=== PATIENT | female | born 1985 | race Caucasian/White ===

== ENCOUNTER 2017-02-08 11:16 | Emergency (ER) | payer OTHER ==
[2017-02-08 11:47] VITALS: RESP 20
--- NOTE | 2017-02-08 13:36 | ED ---
General Adult HPI - General Chief complaint: Upper Respiratory Infection Stated complaint: Cough/ 30 weeks Time Seen by Provider: 02/08/17 13:16 Source: patient, RN notes reviewed Mode of arrival: ambulatory Limitations: no limitations - History of Present Illness Initial comments: Patient 31-year-old female who presents emergency room today with chief complaint cough congestion over week. Does admit to sputum production that it' s green in color. States that she is approximately 30 weeks as well. She denies any body aches or fevers. She has mid to rhinorrhea and a mild sore throat. Patient denies any recent shortness of breath, chest pain, back pain, abdominal pain, nausea or vomiting, numbness or tingling, dysuria or hematuria, constipation or diarrhea, headaches or visual changes, or any other complaints. - Related Data Home Medications Medication Instructions Recorded Confirmed Pnv,Calcium 72/Iron/Folic Acid 1 04/26/15 04/26/15 [ Plus Tablet] Previous Rx's Medication Instructions Recorded Acetaminophen-Codeine 300-30mg 2 each PO Q4HR PRN #30 tab 04/27/15 [Tylenol w/codeine #3] Ibuprofen [Motrin] 600 mg PO Q6HR PRN #30 tab 04/27/15 Azithromycin [Zithromax Z-pack] 0 mg PO DIRECTED #6 tab 02/08/17 Allergies Allergy/AdvReac Type Severity Reaction Status Date / Time latex Allergy Rash/Hives Verified 02/08/17 11:47 Review of Systems ROS Statement: Those systems with pertinent positive or pertinent negative responses have been documented in the HPI. ROS Other: All systems not noted in ROS Statement are negative. Past Medical History Past Medical History: No Reported History Additional Past Medical History / Comment(s): OB history: She has had 4 previous vaginal deliveries. This is her fifth . She has had care with me since 8 weeks. O+, abs neg, Rub Imm, RPR NR, Hep B neg. Declined quad. passed 1hr GTT. GBS neg. History of Any Multi-Drug Resistant Organisms: None Reported Past Surgical History: No Surgical Hx Reported Past Anesthesia/Blood Transfusion Reactions: No Reported Reaction Past Psychological History: No Psychological Hx Reported Smoking Status: Former smoker Past Alcohol Use History: None Reported Past Drug Use History: None Reported - Past Family History Mother History Unknown: Yes Additional Family Medical History / Comment(s): Grandmother colon cancer General Exam - General Exam Comments Initial Comments: General: The patient is awake and alert, in no distress, and does not appear acutely ill. Eye: Pupils are equal, round and reactive to light, extra-ocular movements are intact. No nystagmus. There is normal conjunctiva bilaterally. No signs of icterus. Ears, nose, mouth and throat: There are moist mucous membranes and no oral lesions. Neck: The neck is supple, there is no tenderness or JVD. Cardiovascular: There is a regular rate and rhythm. No murmur, rub or gallop is appreciated. Respiratory: Lungs are clear to auscultation, respirations are non-labored, breath sounds are equal. No wheezes, stridor, rales, or rhonchi. Musculoskeletal: Normal ROM, no tenderness. Strength 5/5. Sensation intact. Pulses equal bilaterally 2+. Neurological: A&O x 3. CN II-XII intact, There are no obvious motor or sensory deficits. Coordination appears grossly intact. Speech is normal. Skin: Skin is warm and dry and no rashes or lesions are noted. Psychiatric: Cooperative, appropriate mood & affect, normal judgment. Limitations: no limitations Course Vital Signs 02/08/17 02/08/17 11:42 12:58 Temperature 97.6 F Pulse Rate 101 H Respiratory 20 20 Rate Blood Pressure 117/62 O2 Sat by Pulse 98 Oximetry Medical Decision Making - Medical Decision Making Options were discussed with patient about x-ray. She is 30 weeks . She states she would like to avoid x-ray if possible. Patient does admit to cough congestion with positive sputum production it's been green in color. Patient's vitals are stable. Patient will be treated for bronchitis placed on azithromycin advised follow-up with her family doctor or SITE DIRECTOR over the next 2 days. Advised return to emergency room if any symptoms increase or worsen or for any other concerns. Disposition Clinical Impression: Acute bronchitis Disposition: HOME SELF-CARE Condition: Good Instructions: Acute Bronchitis (ED) Additional Instructions: Please use medication as discussed. Please follow-up with family doctor in the next 2 days of symptoms have not improved. Please return to emergency room if the symptoms increase or worsen or for any other concerns. Prescriptions: Azithromycin [Zithromax Z-pack] 0 mg PO DIRECTED #6 tab Referrals: Cande Moore MD [Primary Care Provider] - 1-2 days Time of Disposition: 13:34
[2017-02-08 13:50] VITALS: BP 121/61; PULSE 86; TEMP 98.2
== END 2017-02-08 13:50 | disposition home or self-care (01) ==
LOC: EC 11:16
DX: O99.513 Diseases of the respiratory system complicating pregnancy, third trimester (principal); J20.9 Acute bronchitis, unspecified; O99.89 Other specified diseases and conditions complicating pregnancy, childbirth and the puerperium; J34.89 Other specified disorders of nose and nasal sinuses; J02.9 Acute pharyngitis, unspecified; Z87.891 Personal history of nicotine dependence; Z79.899 Other long term (current) drug therapy; Z91.040 Latex allergy status; Z3A.30 30 weeks gestation of pregnancy
CPT/HCPCS: 99283

== ENCOUNTER 2017-04-08 06:00 | Inpatient (IN) | payer OTHER ==
[2017-04-08 06:40] VITALS: BMI 41.9
[2017-04-08] MEDS ORDERED: OXYTOCIN 10 UNIT/ML 1 ML VIAL IM PRN (06:41)
[2017-04-08] MEDS ORDERED: TERBUTALINE 1 MG/ML VIAL SQ PRN (06:41)
[2017-04-08] MEDS ORDERED: METHYLERGONOVINE 0.2 MG/ML 1 ML AMP IM PRN (06:41)
[2017-04-08] MEDS ORDERED: CARBOPROST TROMETHAMINE 250 MCG/ML 1 ML AMP IM PRN (06:41)
[2017-04-08] MEDS ORDERED: LIDOCAINE 1% (PF) 10 MG/ML (30 ML SDV) SQ PRN (06:41)
[2017-04-08] MEDS ORDERED: OXYTOCIN 20 UNITS/1000 ML NS 1,000 ML IV SCH (06:45)
[2017-04-08 06:53] LABS: Basophils % (A) 0 %; Eosinophils # (A) 0.1 k/uL (0-0.7); Eosinophils % (A) 1 %; HCT 36.4 % (34.0-46.0); HGB 12.4 gm/dL (11.4-16.0); Lymphocytes # (A) 2.7 k/uL (1.0-4.8); Lymphocytes % (A) 24 %; MCH 29.9 pg (25.0-35.0); MCHC 34.2 g/dL (31.0-37.0); MCV 87.5 fL (80.0-100.0); Mean Platelet Volume 7.4; Monocytes # (A) 0.5 k/uL (0-1.0); Monocytes % (A) 4 %; Neutrophils # (A) 8.2 k/uL (1.3-7.7); Neutrophils % (A) 70 %; Platelet Count 247 k/uL (150-450); RBC 4.16 m/uL (3.80-5.40); RDW 14.2 % (11.5-15.5); WBC 11.6 k/uL (3.8-10.6)
[2017-04-08] MEDS: LACTATED RINGERS 1,000 ML IV SCH ×4 (06:53→20:27)
--- NOTE | 2017-04-08 17:37 | P.HPOB ---
History of Present Illness H&P Date: 04/08/17 Chief Complaint: Induction of labor 31-year-old presents at 39 weeks for induction of labor. Her cervix is 1- 2 cm dilated, 70% effaced, -2 station. She is mague irregularly. heart tones 140-145 with moderate variability and reactive. Review of Systems All systems: negative Constitutional: Denies chills, Denies fever Eyes: denies blurred vision, denies pain Ears, nose, mouth and throat: Denies headache, Denies sore throat Cardiovascular: Denies chest pain, Denies shortness of breath Respiratory: Denies cough Gastrointestinal: Denies abdominal pain, Denies diarrhea, Denies nausea, Denies vomiting Genitourinary: Denies dysuria, Denies hematuria Musculoskeletal: Denies myalgias Integumentary: Denies pruritus, Denies rash Neurological: Denies numbness, Denies weakness Psychiatric: Denies anxiety, Denies depression Endocrine: Denies fatigue, Denies weight change Past Medical History Past Medical History: No Reported History Additional Past Medical History / Comment(s): OB history: She has had 5 previous vaginal deliveries. This is her sixth . She has had care with dc since 11 weeks. O+, abs neg, Rub Imm, RPR NR, Hep B neg. Declined quad. Did not do 1 hour GTT. GBS neg. History of Any Multi-Drug Resistant Organisms: None Reported Past Surgical History: No Surgical Hx Reported Past Anesthesia/Blood Transfusion Reactions: No Reported Reaction Past Psychological History: No Psychological Hx Reported Smoking Status: Former smoker Past Alcohol Use History: None Reported Past Drug Use History: None Reported - Past Family History Mother History Unknown: Yes Additional Family Medical History / Comment(s): Grandmother colon cancer Medications and Allergies Home Medications Medication Instructions Recorded Confirmed Type Pnv,Calcium 72/Iron/Folic Acid 1 tab PO DAILY 04/26/15 04/08/17 History [ Plus Tablet] Allergies Allergy/AdvReac Type Severity Reaction Status Date / Time latex Allergy Rash/Hives Verified 04/08/17 06:32 Exam Osteopathic Statement: *. No significant issues noted on an osteopathic structural exam other than those noted in the History and Physical/Consult. - Vital Signs Vital signs: Vital Signs Temp Pulse Resp BP Pulse Ox 04/08/17 06:35 98.1 F 94 18 120/59 97 Intake and Output 02/28/18 02/28/18 02/28/18 06:59 14:59 22:59 Other: Weight 128.82 kg Heart: Regular rate and rhythm Lungs: Clear to auscultation bilaterally Abdomen: Soft, nontender Extremities: Negative Homans sign Results Result Diagrams: 04/08/17 06:35 Abnormal Lab Results - Last 24 Hours (Table) 04/08/17 Range/Units 06:35 WBC 11.6 H (3.8-10.6) k/uL Neutrophils # 8.2 H (1.3-7.7) k/uL Assessment and Plan (1) Normal labor Current Visit: Yes Status: Acute Code(s): O80 - ENCOUNTER FOR FULL-TERM UNCOMPLICATED DELIVERY; Z37.9 - OUTCOME OF DELIVERY, UNSPECIFIED SNOMED Code(s ): 85445397 Plan: 1. Induction of labor with amniotomy and Pitocin 2. Anticipate normal vaginal delivery
[2017-04-08] MEDS ORDERED: SODIUM CHLORIDE 0.9% 100 ML BAG ONE (19:43)
[2017-04-08] MEDS ORDERED: fentaNYL (PF) 50 MCG/ML 5 ML AMP ONE (19:43)
[2017-04-08] MEDS ORDERED: BUPIVACAINE (PF) 0.25% 30 ML VIAL ONE (19:43)
[2017-04-09] MEDS ORDERED: SIMETHICONE 80 MG CHEWABLE PO PRN (01:20)
[2017-04-09] MEDS ORDERED: WITCH HAZEL 1 EACH MED..PAD TOPICAL PRN (01:20)
[2017-04-09] MEDS ORDERED: ZOLPIDEM 5 MG TAB PO PRN (01:20)
[2017-04-09] MEDS ORDERED: HYDROCORTISONE 2.5% RECTAL CREAM 30 GM TUBE RECTAL PRN (01:20)
[2017-04-09] MEDS ORDERED: diphenhydrAMINE 25 MG CAP PO PRN (01:20)
[2017-04-09] MEDS ORDERED: diphenhydrAMINE 50 MG CAP PO PRN (01:20)
[2017-04-09] MEDS ORDERED: ACETAMINOPHEN TAB 325 MG TAB PO PRN (01:20)
[2017-04-09] MEDS ORDERED: LANOLIN CREAM 5 GM TUBE TOPICAL PRN (01:20)
[2017-04-09] MEDS ORDERED: diphenhydrAMINE 50 MG/ML 1 ML VIAL IVP PRN ×2 (01:20)
[2017-04-09] MEDS ORDERED: BENZOCAINE/MENTHOL SPRAY 1 GM/SPRAY AEROSOL TOPICAL PRN (01:20)
[2017-04-09] MEDS ORDERED: HYDROcodone/APAP 5-325MG 1 EACH TAB PO PRN ×2 (01:21)
--- NOTE | 2017-04-09 01:24 | P.PROBDLV ---
Vaginal Delivery Note - . Vaginal Delivery Note: 31-year-old presented at 39 weeks for induction of labor. Her cervix is 1 -2 cm dilated, 70% effaced, -2 station. She was mague irregularly. heart tones 140-145 with moderate variability and reactive. Pitocin was started and amniotomy was performed at 7:45 AM, thin meconium fluid noted. She progressed very slowly throughout the day and she was 5 cm dilated she did get an epidural late in the afternoon. Her cervix was completely dilated at 1 AM. She then pushed, and delivered a viable female over intact perineum under epidural anesthesia at 1:03 AM. Head delivered OA, nuchal cord 1 easily reduced, anterior shoulder which was the left shoulder delivered gentle downward traction followed by posterior shoulder and rest of body. Nose and mouth bulb suctioned, cord clamped and cut, infant placed on mother's abdomen. Apgars 8, 9, weight 6 lbs. 5 oz. Placenta delivered spontaneously, intact with three-vessel cord at 1:05 AM. Vagina, cervix, perineum inspected. No lacerations noted. Estimated blood loss 200 mL. Mother and baby in stable condition.
[2017-04-09] MEDS ORDERED: OXYTOCIN 20 UNITS/1000 ML NS 1,000 ML IV SCH (01:30)
[2017-04-09] MEDS: IBUPROFEN 600 MG TAB PO PRN ×2 (04:33→16:54)
[2017-04-09] MEDS ORDERED: BUPIVACAINE (PF) 0.25% 25 ML, fentaNYL (PF) 200 MCG in SODIUM CHLORIDE 0.9% 71 ML EPIDURAL ONE (06:29)
[2017-04-09] MEDS: SENNOSIDES-DOCUSATE SODIUM 1 EACH TAB PO SCH ×2 (08:26→19:50)
[2017-04-10 01:51] VITALS: RESP 16; TEMP 97.7
--- NOTE | 2017-04-10 07:46 | P.DS ---
Providers Date of admission: 04/08/17 06:20 Expected date of discharge: 04/10/17 Attending physician: Vanesa Gasca Primary care physician: Cande Moore - Discharge Diagnosis(es) (1) Normal labor Current Visit: Yes Status: Resolved (2) Normal vaginal delivery Current Visit: No Status: Acute Hospital Course: Patient patient presented for induction of labor. She underwent normal vaginal delivery. Her course was uncomplicated. She'll be discharged home day #1 in stable condition to follow-up with me in 6 weeks. Plan - Discharge Summary New Discharge Prescriptions: New Ibuprofen [Motrin] 600 mg PO Q6HR PRN #30 tab PRN Reason: Mild Pain Or Fever >= 100.5 No Action Pnv,Calcium 72/Iron/Folic Acid [ Plus Tablet] 1 tab PO DAILY Discharge Medication List Pnv,Calcium 72/Iron/Folic Acid [ Plus Tablet] 1 tab PO DAILY 04/26/15 [ History] Ibuprofen [Motrin] 600 mg PO Q6HR PRN #30 tab 04/10/17 [Rx] Follow up Appointment(s)/Referral(s): Vanesa Gasca DO [Doctor of Osteopathic Medicine] - 6 Weeks
[2017-04-10] MEDS: SENNOSIDES-DOCUSATE SODIUM 1 EACH TAB PO SCH (08:55)
[2017-04-10 08:56] VITALS: BP 128/77; PULSE 82
== END 2017-04-10 12:25 | disposition home or self-care (01) | DRG 775 ==
LOC: 4FBP 06:20
PROVIDERS: ADMIT Obstetrics & Gynecology; ATTEND Obstetrics & Gynecology
PROC: 3E0R3NZ Introduction of Analgesics, Hypnotics, Sedatives into Spinal Canal, Percutaneous Approach (ICD-10-PCS; principal; 2017-04-08)
PROC: 10E0XZZ Delivery of Products of Conception, External Approach (ICD-10-PCS; principal; 2017-04-08)
PROC: 3E033VJ Introduction of Other Hormone into Peripheral Vein, Percutaneous Approach (ICD-10-PCS; principal; 2017-04-08)
PROC: 10907ZC Drainage of Amniotic Fluid, Therapeutic from Products of Conception, Via Natural or Artificial Opening (ICD-10-PCS; principal; 2017-04-08)
DX: O69.81X0 Labor and delivery complicated by cord around neck, without compression, not applicable or unspecified (principal); O77.0 Labor and delivery complicated by meconium in amniotic fluid; Z37.0 Single live birth; Z3A.39 39 weeks gestation of pregnancy; Z87.891 Personal history of nicotine dependence; Z91.040 Latex allergy status
CPT/HCPCS: 85025; 88307

== ENCOUNTER 2023-10-13 18:09 | Emergency (ER) | payer OTHER ==
[2023-10-13 18:28] VITALS: TEMP 97.9
--- NOTE | 2023-10-13 18:30 | ED ---
Female Urogenital HPI - General Source: patient, RN notes reviewed Mode of arrival: ambulatory Limitations: no limitations <Sarah Hdz - Last Filed: 10/13/23 18:29> <West Kaur - Last Filed: 10/13/23 22:42> - General Chief complaint: Vaginal Bleeding Stated complaint: vaginal bleeding Time Seen by Provider: 10/13/23 18:29 - History of Present Illness Initial comments: Quick note: 38-year-old female presented to the ER with a chief complaint vaginal bleeding. Patient states she has been on her menstrual cycle since 09-13-2023. She states that has been extremely heavy and even passing clots the size softball. She is not on current any blood thinners. She does have a history of anemia and has been having recent dizziness and lightheadedness. She states that she goes through 1 pad every couple of hours. Frequently soaks her clothing as well. No history of fibroids, cysts or endometriosis. (Sarah Hdz) Patient originally presents as a quick note. Has been having dysfunctional uterine bleeding for the last month. Has had heavy periods that come and go. Will have intermittent abdominal cramping with it. Has not followed up with an SYSTEMS ACCOUNTANT. States she occasionally will feel lightheaded or dizzy. Currently has no symptoms. He has had episodes where she soaks through clothing. Has not yet been evaluated for it. Presents for further evaluation. Is not on blood thinners. Has no other acute complaints at this time. (West Kaur) - Related Data Home Medications Medication Instructions Recorded Confirmed Pnv,Calcium 72/Iron/Folic Acid 1 tab PO DAILY 04/26/15 04/08/17 [ Plus Tablet] Previous Rx's Medication Instructions Recorded Ibuprofen [Motrin] 600 mg PO Q6HR PRN #30 tab 04/10/17 Allergies Allergy/AdvReac Type Severity Reaction Status Date / Time latex Allergy Rash/Hives Verified 10/13/23 18:28 Review of Systems ROS Other: All systems not noted in ROS Statement are negative. <Sarah Hdz - Last Filed: 10/13/23 18:29> ROS Other: All systems not noted in ROS Statement are negative. <West Kaur - Last Filed: 10/13/23 22:42> ROS Statement: Those systems with pertinent positive or pertinent negative responses have been documented in the HPI. Review of Systems: CONST: Denies fever EYES: Denies blurry vision ENT: Denies nasal congestion C/V: Denies Chest pain RESP: Denies shortness of breath GI: Denies abdominal pain : Denies dysuria SKIN: Denies rash. MSK: Denies joint pain. NEURO: Denies headache (West Kaur) Past Medical History Past Medical History: No Reported History Additional Past Medical History / Comment(s): OB history: She has had 5 previous vaginal deliveries. This is her sixth . She has had care with me since 11 weeks. O+, abs neg, Rub Imm, RPR NR, Hep B neg. Declined quad. Did not do 1 hour GTT. GBS neg. History of Any Multi-Drug Resistant Organisms: None Reported Past Surgical History: No Surgical Hx Reported Past Anesthesia/Blood Transfusion Reactions: No Reported Reaction Past Psychological History: No Psychological Hx Reported Smoking Status: Never smoker Past Alcohol Use History: None Reported Past Drug Use History: None Reported - Past Family History Mother History Unknown: Yes Additional Family Medical History / Comment(s): Grandmother colon cancer <Sarah Hdz - Last Filed: 10/13/23 18:29> General Exam Limitations: no limitations <Sarah Hdz - Last Filed: 10/13/23 18:29> <West Kaur - Last Filed: 10/13/23 22:42> - General Exam Comments Initial Comments: Visual Physical Exam Vital signs reviewed General: Well-appearing, nontoxic, no acute distress. Head: Normocephalic, atraumatic Eyes: PERRLA, EOMI ENT: Airway patent Chest: Nonlabored breathing Skin: No visual rash, normal skin tone Neuro: Alert and oriented 3 Musculoskeletal: No gross abnormalities (Sarah Hdz) General: Appears in no acute distress. HEAD: Normal with no signs of head trauma. EYES: EOMI ENT: Hearing grossly intact, normal oropharynx. RESPIRATORY: Clear breath sounds bilaterally. No wheezes, rales, or rhonchi. C/V: Regular rate and rhythm. S1 and S2 auscultated, peripheral pulses 2+ and intact throughout ABD: Abd is soft, nontender, nondistended EXT: Normal range of motion, no obvious deformity SKIN: No rashes or lesions observed on exposed skin. NEURO: Alert and oriented x 4. (West Kaur) Course Vital Signs 10/13/23 18:26 Temperature 97.9 F Pulse Rate 77 Respiratory 18 Rate Blood Pressure 129/74 O2 Sat by Pulse 100 Oximetry Medical Decision Making <Sarah Hdz - Last Filed: 10/13/23 18:29> - Lab Data Result diagrams: 10/13/23 19:20 10/13/23 19:20 <West Kaur - Last Filed: 10/13/23 22:42> - Medical Decision Making I performed the quick note portion of this chart. Electronically signed by Sarah Hdz PA-C (Sarah Hdz) Was pt. sent in by a medical professional or institution (GUILHERME Martin, SURVEILLANCE INSPECTOR, urgent care, hospital, or longterm...) When possible be specific @ -No Did you speak to anyone other than the patient for history (EMS, parent, family, police, friend...)? What history was obtained from this source @ -No Did you review nursing and triage notes (agree or disagree)? Why? @ -I reviewed and agree with nursing and triage notes Were old charts reviewed (outside hosp., previous admission, EMS record, old EKG, old radiological studies, urgent care reports/EKG's, longterm records)? Report findings @ -No old charts were reviewed Differential Diagnosis (chest pain, altered mental status, abdominal pain women, abdominal pain men, vaginal bleeding, weakness, fever, dyspnea, syncope, headache, dizziness, GI bleed, back pain, seizure, CVA, palpatations, mental health, musculoskeletal)? @ -Differential Vaginal Bleeding: Spontaneous , threatened , molar , ectopic , bloody show, incompetent cervix, abruptioplacenta, placenta previa, uterine rupture, dysfunctional uterine bleeding, hemorrhage, uterine fibroids, this is not meant to be an all-inclusive list. EKG interpreted by me (3pts min.). @ -None done X-rays interpreted by me (1pt min.). @ -None done CT interpreted by me (1pt min.). @ -None done U/S interpreted by me (1pt. min.). @ -Ultrasound shows thickened endometrium. Possible fibroid present. Incidental right ovarian follicle also present. What testing was considered but not performed or refused? (CT, X-rays, U/S, labs)? Why? @ -None What meds were considered but not given or refused? Why? @ -None Did you discuss the management of the patient with other professionals (professionals i.e. , PA, SURVEILLANCE INSPECTOR, lab, RT, psych nurse, delinquency prevention social worker, bulb inspector, teacher, hazard mitigation officer, telephonic nurse case manager)? Give summary @ -No Was smoking cessation discussed for >3mins.? @ -No Was critical care preformed (if so, how long)? @ -No Were there social determinants of health that impacted care today? How? (Homelessness, low income, unemployed, alcoholism, drug addiction, transportation, low edu. Level, literacy, decrease access to med. care, fdc, rehab)? @ -No Was there de-escalation of care discussed even if they declined (Discuss DNR or withdrawal of care, Hospice)? DNR status @ -No What co-morbidities impacted this encounter? (DM, HTN, Smoking, COPD, CAD, Cancer, CVA, ARF, Chemo, Hep., AIDS, mental health diagnosis, sleep apnea, morbid obesity)? @ -None Was patient admitted / discharged? Hospital course, mention meds given and route, prescriptions, significant lab abnormalities, going to OR and other pertinent info. @ -Patient presents with dysfunctional uterine bleeding. Workup started as a quick note. I evaluated after workup was completed. Vital signs are within acceptable limits. Laboratory studies returned within normal limits including a normal hemoglobin, normal coags. Urinalysis shows blood from her uterine bleeding. Elevated white count in the urine however this is likely from the bleeding from her uterus. Ultrasound reveals thickened endometrium with findings consistent with a fibroid. She is not . I discussed the results with the patient. She expressed understanding. She is asymptomatic at this time. I recommended she follow-up with SYSTEMS ACCOUNTANT as she likely requires further evaluation and possible D&C. She expressed understanding was in agreement this plan. Her SYSTEMS ACCOUNTANT is no longer in the area and I will provide her with contact information for 1. Strict return p recautions discussed. I instructed the patient to follow up with their PCP in the next 1-3 days. I provided contact information for follow up with SYSTEMS ACCOUNTANT. I explained that the patient should return to the emergency department if they experience any worsening symptoms. Strict return precautions were discussed with the patient. The patient expressed understanding of these instructions. I answered all questions that the patient had. The patient was discharged home in good condition with their prescriptions and follow up information. Undiagnosed new problem with uncertain prognosis? @ -No Drug Therapy requiring intensive monitoring for toxicity (Heparin, Nitro, Insulin, Cardizem)? @ -No Were any procedures done? @ -No Diagnosis/symptom? @ -Dysfunctional uterine bleeding, fibroids Acute, or Chronic, or Acute on Chronic? @ -Acute Uncomplicated (without systemic symptoms) or Complicated (systemic symptoms)? @ -Uncomplicated Side effects of treatment? @ -No Exacerbation, Progression, or Severe Exacerbation? @ -No Poses a threat to life or bodily function? How? (Chest pain, USA, PR, pneumonia, PE, COPD, DKA, ARF, appy, cholecystitis, CVA, Diverticulitis, Homicidal, Suicidal, threat to staff... and all critical care pts) @ -Unlikely at this time (West Kaur) - Lab Data Lab Results 10/13/23 10/13/23 10/13/23 Range/Units 19:15 19:20 19:20 WBC 10.2 (3.8-10.6) k/uL RBC 4.24 (3.80-5.40) m/uL Hgb 12.8 (11.4-16.0) gm/dL Hct 37.3 (34.0-46.0) % MCV 87.9 (80.0-100.0) fL MCH 30.2 (25.0-35.0) pg MCHC 34.4 (31.0-37.0) g/dL RDW 13.3 (11.5-15.5) % Plt Count 313 (150-450) k/uL MPV 7.3 Neutrophils % 70 % Lymphocytes % 25 % Monocytes % 3 % Eosinophils % 1 % Basophils % 0 % Neutrophils # 7.2 (1.3-7.7) k/uL Lymphocytes # 2.6 (1.0-4.8) k/uL Monocytes # 0.3 (0-1.0) k/uL Eosinophils # 0.1 (0-0.7) k/uL Basophils # 0.0 (0-0.2) k/uL PT 11.3 (10.0-12.5) sec INR 1.0 (<1.2) APTT 26.4 (22.0-30.0) sec Sodium (137-145) mmol/L Potassium (3.5-5.1) mmol/L Chloride (98-107) mmol/L Carbon Dioxide (22-30) mmol/L Anion Gap mmol/L BUN (7-17) mg/dL Creatinine (0.52-1.04) mg/dL Est GFR (CKD-EPI)AfAm (>60 ml/min/1.73 sqM) Est GFR (CKD-EPI)NonAf (>60 ml/min/1.73 sqM) Glucose (74-99) mg/dL Calcium (8.4-10.2) mg/dL Total Bilirubin (0.2-1.3) mg/dL AST (14-36) U/L ALT (4-34) U/L Alkaline Phosphatase (38-126) U/L Total Protein (6.3-8.2) g/dL Albumin (3.5-5.0) g/dL Urine Color Urine Appearance (Clear) Urine pH (5.0-8.0) Ur Specific [place] (1.001-1.035) Urine Protein (Negative) Urine Glucose (UA) (Negative) Urine Ketones (Negative) Urine Blood (Negative) Urine Nitrite (Negative) Urine Bilirubin (Negative) Urine Urobilinogen (<2.0) mg/dL Ur Leukocyte Esterase (Negative) Urine RBC (0-5) /hpf Urine WBC (0-5) /hpf Ur Squamous Epith Cells (0-4) /hpf Urine Mucus (None) /hpf Urine HCG, Qual (Not Detectd) Blood Type O Positive Blood Type Recheck O Pos Bld Type Recheck Status No Antibody Screen NEGATIVE Spec Expiration Date 10/16/2023231410/13/23 10/13/23 10/13/23 Range/Units 19:20 19:32 19:32 WBC (3.8-10.6) k/uL RBC (3.80-5.40) m/uL Hgb (11.4-16.0) gm/dL Hct (34.0-46.0) % MCV (80.0-100.0) fL MCH (25.0-35.0) pg MCHC (31.0-37.0) g/dL RDW (11.5-15.5) % Plt Count (150-450) k/uL MPV Neutrophils % % Lymphocytes % % Monocytes % % Eosinophils % % Basophils % % Neutrophils # (1.3-7.7) k/uL Lymphocytes # (1.0-4.8) k/uL Monocytes # (0-1.0) k/uL Eosinophils # (0-0.7) k/uL Basophils # (0-0.2) k/uL PT (10.0-12.5) sec INR (<1.2) APTT (22.0-30.0) sec Sodium 140 (137-145) mmol/L Potassium 4.0 (3.5-5.1) mmol/L Chloride 107 (98-107) mmol/L Carbon Dioxide 29 (22-30) mmol/L Anion Gap 4 mmol/L BUN 12 (7-17) mg/dL Creatinine 0.84 (0.52-1.04) mg/dL Est GFR (CKD-EPI)AfAm >90 (>60 ml/min/1.73 sqM) Est GFR (CKD-EPI)NonAf 87 (>60 ml/min/1.73 sqM) Glucose 93 (74-99) mg/dL Calcium 9.4 (8.4-10.2) mg/dL Total Bilirubin 0.9 (0.2-1.3) mg/dL AST 21 (14-36) U/L ALT 17 (4-34) U/L Alkaline Phosphatase 69 (38-126) U/L Total Protein 7.2 (6.3-8.2) g/dL Albumin 4.4 (3.5-5.0) g/dL Urine Color Light Red Urine Appearance Clear (Clear) Urine pH 5.0 (5.0-8.0) Ur Specific [place] 1.025 (1.001-1.035) Urine Protein 1+ H (Negative) Urine Glucose (UA) Negative (Negative) Urine Ketones Negative (Negative) Urine Blood Large H (Negative) Urine Nitrite Negative (Negative) Urine Bilirubin Negative (Negative) Urine Urobilinogen <2.0 (<2.0) mg/dL Ur Leukocyte Esterase Small H (Negative) Urine RBC >182 H (0-5) /hpf Urine WBC 99 H (0-5) /hpf Ur Squamous Epith Cells 1 (0-4) /hpf Urine Mucus Rare H (None) /hpf Urine HCG, Qual Not Detected (Not Detectd) Blood Type Blood Type Recheck Bld Type Recheck Status Antibody Screen Spec Expiration Date Disposition <Sarah Hdz - Last Filed: 10/13/23 18:29> Is patient prescribed a controlled substance at d/c from ED?: No Time of Disposition: 22:10 <West Kaur - Last Filed: 10/13/23 22:42> Clinical Impression: Dysfunctional uterine bleeding, Fibroids Disposition: HOME SELF-CARE Condition: Good Instructions (If sedation given, give patient instructions): Dysmenorrhea (ED) Additional Instructions: Follow up with OBGYN. Return if any worsening symptoms. Referrals: Cande Moroe MD [Primary Care Provider] - 1-2 days [facility] MD [STAFF PHYSICIAN] - 1-2 days
[2023-10-13 19:32] LABS: Basophils % (A) 0 %; Eosinophils # (A) 0.1 k/uL (0-0.7); Eosinophils % (A) 1 %; HCT 37.3 % (34.0-46.0); HGB 12.8 gm/dL (11.4-16.0); Lymphocytes # (A) 2.6 k/uL (1.0-4.8); Lymphocytes % (A) 25 %; MCH 30.2 pg (25.0-35.0); MCHC 34.4 g/dL (31.0-37.0); MCV 87.9 fL (80.0-100.0); Mean Platelet Volume 7.3; Monocytes # (A) 0.3 k/uL (0-1.0); Monocytes % (A) 3 %; Neutrophils # (A) 7.2 k/uL (1.3-7.7); Neutrophils % (A) 70 %; Platelet Count 313 k/uL (150-450); RBC 4.24 m/uL (3.80-5.40); RDW 13.3 % (11.5-15.5); WBC 10.2 k/uL (3.8-10.6)
[2023-10-13 19:42] LABS: Partial Thromboplastin Time 26.4 sec (22.0-30.0); Prothrombin Time 11.3 sec (10.0-12.5)
--- NOTE | 2023-10-13 19:45 | US ---
EXAMINATION TYPE: US transvaginal DATE OF EXAM: 10/13/2023 COMPARISON: NONE CLINICAL INDICATION: Female, 38 years old with history of vaginal bleeding; Patient states heavy vagi nal bleeding that has not stopped since 09/13/2023. TECHNIQUE: Transvaginal (TV). . Transvaginal sonographic images were medically necessary to better assess the following anatomy: Endometrium Date of LMP: 09/13/2023, still bleeding EXAM MEASUREMENTS: Uterus: 10.5 x 5.6 x 6.1 cm Endometrial Stripe: 2.1 cm Right Ovary: 3.1 x 2.6 x 3.5 cm Left Ovary: Unable to visualize due to overlying bowel Limited due to overlying bowel 1. Uterus: Anteverted WNL as best seen 2. Endometrium: Thickened and slightly heterogeneous. Appears to contain areas of vascularity. There is a 1.0 x 0.4cm anechoic area seen within. 3. Right Ovary: There is a 2.8 x 2.2 x 2.6cm anechoic area seen within 4. Left Ovary: Obscured by overlying bowel gas Spectral, color and waveform doppler imaging shows good arterial and venous flow within the right o vary; there is no evidence for ovarian torsion within the visualized ovary. 5. Bilateral Adnexa: wnl 6. Posterior cul-de-sac: wnl IMPRESSION: 1. Thickened heterogenous endometrium. Further evaluation with direct visualization should be consid ered. Submucosal fibroid versus polyp is not excluded. 2. Right ovarian dominant follicle measuring up to 2.8 cm.
[2023-10-13 19:55] LABS: Appearance,Urine Clear (Clear); Bilirubin,Urine Negative (Negative); Blood,Urine Large (Negative); Color,Urine Light Red; Glucose,Urine (UA) Negative (Negative); Ketones,Urine Negative (Negative); Leukocyte Esterase,Urine Small (Negative); Mucus,Urine Rare /hpf; Nitrite,Urine Negative (Negative); Protein,Urine 1+ (Negative); RBC,Urine >182 /hpf (0-5); Specific Gravity,Urine 1.025 (1.001-1.035); Squamous Epithelial Cell,Urine 1 /hpf (0-4); Urobilinogen,Urine <2.0 mg/dL (<2.0); WBC,Urine 99 /hpf (0-5)
[2023-10-13 19:57] LABS: ALT 17 U/L (4-34); AST 21 U/L (14-36); African American GFR (CKD) >90 (>60 ml/min/1.73 sqM); Albumin 4.4 g/dL (3.5-5.0); Alkaline Phosphatase 69 U/L (38-126); Anion Gap 4 mmol/L; Blood Urea Nitrogen 12 mg/dL (7-17); Calcium 9.4 mg/dL (8.4-10.2); Carbon Dioxide 29 mmol/L (22-30); Chloride 107 mmol/L (98-107); Glucose 93 mg/dL (74-99); Non-African American GFR(CKD) 87 (>60 ml/min/1.73 sqM); Sodium 140 mmol/L (137-145); Total Bilirubin 0.9 mg/dL (0.2-1.3); Total Protein 7.2 g/dL (6.3-8.2)
[2023-10-13 23:13] VITALS: BP 126/78; PULSE 76; RESP 17
== END 2023-10-13 23:12 | disposition home or self-care (01) ==
LOC: EC 18:09
CPT/HCPCS: 36415; 76830; 80053; 81001; 81025; 85025; 85610; 85730; 86850; 86900; 86901; 93976; 99284